=== PATIENT | male | born 1950 | race Caucasian/White ===

== ENCOUNTER 2021-08-15 07:47 | Day surgery (SDC) | payer MEDICARE, BC ==
[2021-08-08 09:53] LABS: EOSINOPHILS # (AUTO) 0.2 X10'3 (0-0.9); EOSINOPHILS % (AUTO) 5.7 % (0-6); HEMATOCRIT 26.6 % (42.0-52.0); HEMOGLOBIN 9.1 g/dl (14.0-17.9); LYMPHOCYTES # (AUTO) 0.8 X10'3 (1.1-4.8); LYMPHOCYTES % (AUTO) 19.2 % (21-51); MEAN CORPUSCULAR HEMOGLOBIN 33.2 PG (27.0-31.0); MEAN CORPUSCULAR HGB CONC 34.2 g/dL (33.0-36.5); MEAN CORPUSCULAR VOLUME 97.1 FL (78-98); MEAN PLATELET VOLUME 9.1 FL (7.4-10.4); MONOCYTES # (AUTO) 0.6 X10'3 (0-0.9); MONOCYTES % (AUTO) 13.9 % (2-12); NEUTROPHILS # (AUTO) 2.5 X10'3 (1.8-7.7); NEUTROPHILS % (AUTO) 60.2 % (42-75); PLATELET COUNT 114 X10'3 (140-440); RED BLOOD COUNT 2.74 X10'6 (4.70-6.10); RED CELL DISTRIBUTION WIDTH 17.4 % (11.5-14.5); WHITE BLOOD COUNT 4.2 X10'3 (4.5-11.0)
[2021-08-08 10:04] LABS: APTT 27 SECONDS (22-32)
[2021-08-08 10:06] LABS: ALANINE AMINOTRANSFERASE 108 U/L (12-78); ALBUMIN 2.8 G/DL (3.4-5.0); ALBUMIN/GLOBULIN RATIO 0.7 (1.1-1.5); ALKALINE PHOSPHATASE 144 IU/L (46-116); ANION GAP 10 (8-16); ASPARTATE AMINO TRANSFERASE 44 U/L (10-37); BILIRUBIN,TOTAL 0.3 MG/DL (0.1-1.0); BLOOD UREA NITROGEN 14 MG/DL (7-18); BUN/CREATININE RATIO 11.9 (5.4-32.0); CALCIUM 8.4 MG/DL (8.5-10.1); CHLORIDE 104 MMOL/L (99-107); CREATININE 1.18 MG/DL (0.60-1.10); GLUCOSE 175 MG/DL (70-104); POTASSIUM 3.7 MMOL/L (3.5-5.1); SODIUM 139 MMOL/L (135-145); TOTAL CARBON DIOXIDE 24.7 MMOL/L (24-32); TOTAL PROTEIN 6.7 G/DL (6.4-8.2); eGFR 61 ML/MIN
[2021-08-15] VITALS (10 sets, daily range): BP systolic 110–158; BP diastolic 67–82
[~2021-08-15] VITALS: Ht 177.8 cm; Wt 122.5 kg
[2021-08-15] MEDS ORDERED: diphenhydrAMINE 25mg capsule PO PRN (08:05)
[2021-08-15] MEDS ORDERED: LORazepam 0.5 MG tablet PO PRN (08:05)
[2021-08-15] MEDS ORDERED: nitroGLYCERIN 0.4mg SUBLingual tab SL PRN ×2 (08:05→12:35)
[2021-08-15] MEDS ORDERED: normal saline 1,000 ML IV SCH (08:05)
[2021-08-15] MEDS ORDERED: dextrose 50%-water 50ml dispensing syringe IV PRN ×2 (08:10)
[2021-08-15] MEDS ORDERED: DEXTROSE 15 GM of carb/4 tabs (each vial/BOTTLE has 4 tablets) PO PRN ×2 (08:10)
[2021-08-15] MEDS ORDERED: MESSAGE TO PHARMACY PO ONE (08:10)
[2021-08-15] MEDS ORDERED: glucagon, human recombinant 1mg kit SUBCUT PRN (08:10)
[2021-08-15] MEDS ORDERED: insulin Lispro (HumaLOG) vial - multi-dose SQ SCH (08:10)
[2021-08-15] MEDS ORDERED: LOSA100T57 PO (08:38)
[2021-08-15] MEDS ORDERED: DEXA4TAB (08:38)
[2021-08-15] MEDS ORDERED: ACYC-126 PO (08:38)
[2021-08-15] MEDS ORDERED: LEVO200T8 PO (08:38)
[2021-08-15] MEDS ORDERED: METF-438 PO (08:38)
[2021-08-15] MEDS ORDERED: ONDA-104 PO (08:38)
[2021-08-15] MEDS ORDERED: SIMV-45 PO (08:38)
[2021-08-15] MEDS ORDERED: ALLO300T9 PO (08:38)
[2021-08-15] MEDS ORDERED: LENA10CA4 (08:38)
[2021-08-15] MEDS ORDERED: PROC10TA10 PO (08:38)
[2021-08-15] MEDS ORDERED: FLO0.4C PO (08:38)
[2021-08-15] MEDS ORDERED: ASPI-1071 PO (08:50)
[2021-08-15] MEDS ORDERED: NPH,100V2 SQ (08:50)
[2021-08-15] MEDS ORDERED: OMEG-15 PO (08:50)
[2021-08-15] MEDS ORDERED: Vitamin B12 PO (08:50)
[2021-08-15] MEDS ORDERED: NOVRI SQ (08:50)
[2021-08-15] MEDS ORDERED: OXYM30SP26 BOTHNARES (08:50)
[2021-08-15] MEDS ORDERED: [UNRECOGNIZED DRUG - OTHER] (08:51)
[2021-08-15] MEDS ORDERED: fentaNYL/PF 50MCG/1 ML 2ML syringe ONE (10:11)
[2021-08-15] MEDS ORDERED: midazolam 1 mg/ML 2ml injection ONE (10:11)
[2021-08-15] MEDS ORDERED: iohexol 350MG/ML 100ml bottle IV ONE (10:11)
[2021-08-15] MEDS ORDERED: LIDOcaine 1% 30ml preserv. free vial ONE (10:12)
[2021-08-15] MEDS ORDERED: normal saline 1000ml 1,000 ML IV SCH (12:30)
[2021-08-15] MEDS ORDERED: ondansetron/PF 4mg/2ml inj IV PRN (12:30)
[2021-08-15] MEDS ORDERED: HYDROcodone/acetaminophen 5mg/325mg tablet PO PRN (12:35)
[2021-08-15] MEDS ORDERED: OXAZEpam 15mg capsule PO PRN (12:35)
[2021-08-15] MEDS ORDERED: insulin glargine (Lantus) pen - multi-dose SQ SCH (21:00)
== END 2021-08-15 17:00 | disposition home or self-care (01) ==
LOC: SSTAY O 07:47
PROVIDERS: ATTEND Internal Medicine Cardiovascular Disease
DX: R94.39 Abnormal result of other cardiovascular function study (principal); I25.718 Atherosclerosis of autologous vein coronary artery bypass graft(s) with other forms of angina pectoris; C90.00 Multiple myeloma not having achieved remission; E11.9 Type 2 diabetes mellitus without complications; I10 Essential (primary) hypertension; K74.60 Unspecified cirrhosis of liver; D61.818 Other pancytopenia; E78.5 Hyperlipidemia, unspecified; J44.9 Chronic obstructive pulmonary disease, unspecified; E83.52 Hypercalcemia; E66.9 Obesity, unspecified; Z68.38 Body mass index [BMI] 38.0-38.9, adult; Z87.891 Personal history of nicotine dependence; Z87.442 Personal history of urinary calculi; Z79.899 Other long term (current) drug therapy; Z79.4 Long term (current) use of insulin; Z79.82 Long term (current) use of aspirin; Z82.3 Family history of stroke; Z82.49 Family history of ischemic heart disease and other diseases of the circulatory system
CPT/HCPCS: 36415; 71046; 80053; 82948; 83036; 85025; 85610; 85730; 93005; 93459; 99152; 99153; C1760; C1769; J1644; J2250; J3010; J3490; J7030; Q0163; Q9967; A4620; A6258; A6402; J1815